=== PATIENT | female | born 1990 | race Caucasian/White ===

== ENCOUNTER 2016-12-05 15:26 | Emergency (ER) | payer SELFPAY ==
[~2016-12-05] VITALS: Ht 165.1 cm; Wt 86.2 kg
[~2016-12-05 15:26] MED LIST: PRENATAL VITAMI1 T10 PO
[2016-12-05 15:40] VITALS: BP 143/88
--- NOTE | 2016-12-05 16:37 | NUR ---
Pt ambulated to bed 8.
--- NOTE | 2016-12-05 16:39 | NUR ---
Patient being evaluated by physician assistance at bedside.
[2016-12-05] MEDS ORDERED: ONDANSETRON 4 MG ODT PO ONE (16:45)
--- NOTE | 2016-12-05 16:48 | NUR ---
L & D NURSE CHECKING HEART TONES AT BEDSIDE. ERMD AWARE
--- NOTE | 2016-12-05 17:00 | NUR ---
26/F presents to ED for evaluation of vomiting since today. Patient reports being 17 weeks , G-3 P-2. Patient has had no care at this time. Patient c/o vomiting x6 episodes today. Patient denies any vaginal bleeding, denies abdominal pain. Denies s/s of UTI. Patient is AOX4, ambulates with steady gait. VSS.
[2016-12-05] MEDS ORDERED: cefTRIAXone 250 MG in LIDOCAINE 1% ED 0.9 ML IM ONE (17:10)
[2016-12-05] MEDS ORDERED: AZITHROMYCIN 250 MG TAB PO ONE (17:10)
[2016-12-05 18:29] VITALS: BP 132/78
--- NOTE | 2016-12-05 18:29 | NUR ---
PHONE PROVIDED FOR PT FOR RIDE HOME---
== END 2016-12-05 18:28 | disposition home or self-care (01) ==
LOC: MED 15:26
DX: O21.0 Mild hyperemesis gravidarum (principal); O23.42 Unspecified infection of urinary tract in pregnancy, second trimester; O98.312 Other infections with a predominantly sexual mode of transmission complicating pregnancy, second trimester; O26.892 Other specified pregnancy related conditions, second trimester; R03.0 Elevated blood-pressure reading, without diagnosis of hypertension; Z3A.17 17 weeks gestation of pregnancy
CPT/HCPCS: 36415; 81001; 81025; 87086; 87491; 96372; 99284; J0696; J2001; S0119

== ENCOUNTER 2016-12-07 00:17 | Emergency (ER) | payer SELFPAY ==
[~2016-12-07] VITALS: Ht 165.1 cm; Wt 81.6 kg
[2016-12-07 00:27] VITALS: BP 119/73
--- NOTE | 2016-12-07 00:32 | NUR ---
BIBA TO ER BED ALS TO ER BED 8
[2016-12-07] MEDS ORDERED: NACL 0.9% 1,000 ML IV ONE (00:40)
[2016-12-07] MEDS ORDERED: ONDANSETRON 4 MG/2 ML VIAL IVP ONE (00:40)
--- NOTE | 2016-12-07 00:42 | NUR ---
PT BIBA C/O VOMITING BLOOD SINCE THIS MORNING. REPORTS BEING 17WKS . PT STATES NO MED HX. DENIES N/D; SKIN IS PINK/WARM/DRY; AAOX4 WITH EVEN AND STEADY GAIT; LUNGS CLEAR BL; HR EVEN AND REGULAR; PT DENIES ANY FEVER, CP, SOB, OR COUGH AT THIS TIME; PATIENT STATES PAIN OF 0/10 AT THIS TIME; VSS; PATIENT POSITIONED FOR COMFORT; HOB ELEVATED; BEDRAILS UP X2; BED DOWN. ER MD MADE AWARE OF PT STATUS.
--- NOTE | 2016-12-07 00:58 | NUR ---
Patient being evaluated by physician at bedside.
--- NOTE | 2016-12-07 02:50 | NUR ---
PT RESTING IN BED. NO S/S OF ACUTE DISTRESS AT THIS TIME.
[2016-12-07 04:25] VITALS: BP 116/68
== END 2016-12-07 04:25 | disposition home or self-care (01) ==
LOC: MED 00:17
DX: O21.0 Mild hyperemesis gravidarum (principal); O23.42 Unspecified infection of urinary tract in pregnancy, second trimester; O16.2 Unspecified maternal hypertension, second trimester; Z3A.17 17 weeks gestation of pregnancy
CPT/HCPCS: 36415; 76805; 80048; 81001; 84702; 85025; 86900; 86901; 87086; 96361; 96374; 99285; J2405; J7030

== ENCOUNTER 2022-02-21 00:53 | Observation (INO) | payer MEDICAID ==
[~2022-02-21] VITALS: Ht 152.4 cm; Wt 90.7 kg
[~2022-02-21 00:53] MED LIST changes: +CEPH-588 PO; +NAPR-54 PO; +PREN-385 PO; -PRENATAL VITAMI1 T10 PO
[2022-02-21] MEDS ORDERED: cefTRIAXone 1,000 MG in LIDOCAINE MPF 1% 2.1 ML IM SCH (01:40)
[2022-02-21] MEDS ORDERED: LIDOCAINE MPF 1% 10 MG/ML VIAL INJ SCH (01:40)
[2022-02-21 01:44] VITALS: BP 123/85
[2022-02-21] MEDS ORDERED: LIDOCAINE 1% 500 MG/50 ML VIAL ONE (01:50)
[2022-02-21] MEDS ORDERED: cefTRIAXone 1,000 MG VIAL ONE (01:50)
== END 2022-02-21 02:10 | disposition home or self-care (01) ==
LOC: MLD 00:53
PROVIDERS: ADMIT Obstetrics & Gynecology; ATTEND Obstetrics & Gynecology
DX: O26.893 Other specified pregnancy related conditions, third trimester (principal); R10.9 Unspecified abdominal pain; O99.333 Smoking (tobacco) complicating pregnancy, third trimester; F17.200 Nicotine dependence, unspecified, uncomplicated; Z3A.32 32 weeks gestation of pregnancy
CPT/HCPCS: 96372; G0378; J0696; J2001; 59025

== ENCOUNTER 2022-10-22 10:42 | Observation (INO) | payer MEDICAID ==
[~2022-10-22] VITALS: Ht 165.1 cm; Wt 90.7 kg
[2022-10-22] MEDS ORDERED: DEXT 5% / LACT RING 1,000 ML IV ONE (11:15)
[2022-10-22 11:21] VITALS: BP 172/85
[2022-10-22] MEDS ORDERED: DEXT 5% / LACT RING 1,000 ML IV SCH (11:30)
[2022-10-22] MEDS: ONDANSETRON 4 MG/2 ML VIAL IVP PRN ×2 (11:53→17:49)
[2022-10-22] MEDS ORDERED: METOCLOPRAMIDE 10 MG/2 ML INJ VIAL IVP SCH (12:50)
[2022-10-22] MEDS ORDERED: NALBUPHINE 10 MG/ML AMP IVP PRN (18:20)
[2022-10-22] MEDS ORDERED: LACTATED RINGERS 1,000 ML IV SCH (18:30)
[2022-10-22] MEDS ORDERED: NALBUPHINE 10 MG/ML AMP ONE (18:35)
== END 2022-10-22 20:08 | disposition home or self-care (01) ==
LOC: MLD 10:42 → UNDOADMOB 11:05
PROVIDERS: ADMIT Obstetrics & Gynecology; ATTEND Obstetrics & Gynecology
DX: O21.9 Vomiting of pregnancy, unspecified (principal); Z20.822 Contact with and (suspected) exposure to COVID-19; O26.892 Other specified pregnancy related conditions, second trimester; R10.9 Unspecified abdominal pain; Z3A.15 15 weeks gestation of pregnancy
CPT/HCPCS: 87426; 96361; 96374; 96376; G0378; J2300; J2405; J2765

== ENCOUNTER 2022-12-11 21:30 | Inpatient (IN) | payer MEDICAID ==
[~2022-12-11] VITALS: Ht 165.1 cm; Wt 90.7 kg
[~2022-12-11 21:30] MED LIST changes: -CEPH-588 PO; -NAPR-54 PO
[2022-12-11 22:07] VITALS: BP 191/93
[2022-12-11 22:44] LABS: BASOPHILS % (AUTO) 0.1 % (0.0-2.0); EOSINOPHILS % (AUTO) 0.1 % (0.0-4.0); HEMATOCRIT 27.2 % (36-48); HEMOGLOBIN 8.2 g/dL (12.0-16.0); LYMPHOCYTES # (AUTO) 1.3 K/uL (2.5-16.5); LYMPHOCYTES % (AUTO) 9.9 % (20.5-51.1); MEAN CORPUSCULAR HEMOGLOBIN 19 pg (27-31); MEAN CORPUSCULAR HGB CONC 30 g/dL (33-37); MEAN CORPUSCULAR VOLUME 61.2 fL (80-94); MONOCYTES # (AUTO) 0.7 K/uL (0.8-1.0); MONOCYTES % (AUTO) 4.9 % (1.7-9.3); NEUTROPHILS # (AUTO) 11.5 K/uL (1.8-7.7); PLATELET COUNT (AUTO) 372 K/uL (140-450); RED BLOOD CELL COUNT(AUTO) 4.44 MIL/uL (4.20-5.40); RED CELL DISTRIBUTION WIDTH 21.4 % (11.6-13.7); WHITE BLOOD COUNT (AUTO) 13.5 K/uL (4.8-10.8)
[2022-12-11] MEDS: MORPHINE SULFATE 4 MG/ML SYR IVP PRN (22:56)
[2022-12-11] MEDS: ONDANSETRON 4 MG/2 ML VIAL IVP PRN (22:57)
[2022-12-11 23:39] LABS: ALBUMIN 2.9 g/dL (3.4-5.0); ANION GAP 11.2 (8-16); CARBON DIOXIDE 26.7 mmol/L (21-32); CREATININE 0.6 mg/dL (0.6-1.3); POTASSIUM 3.9 mmol/L (3.5-5.1); TOTAL BILIRUBIN 0.3 mg/dL (0.0-1.0)
[2022-12-12] MEDS ORDERED: LABETALOL 20 MG/4 ML VIAL IVP ONE ×3 (00:24→16:21)
[2022-12-12] MEDS ORDERED: MAG SULF 20 GM/H2O PREMIX DRIP 500 ML IV PRN (00:25)
[2022-12-12] MEDS ORDERED: MAG SULF 2000 MG/WATER PREMIX 100 ML IV ONE (00:25)
[2022-12-12] MEDS: MORPHINE SULFATE 4 MG/ML SYR IVP PRN ×5 (01:56→20:01)
[2022-12-12] MEDS ORDERED: BETAMETH ACET/BETAMETH NA PH 30 MG/5 ML VIAL IM PRN (02:00)
[2022-12-12] MEDS ORDERED: BETAMETH ACET/BETAMETH NA PH 30 MG/5 ML VIAL IM ONE (02:06)
[2022-12-12 03:13] LABS: BARBITURATE, URINE NEGATIVE ng/ml (NEG <=200); BENZODIAZEPINE, URINE NEGATIVE ng/mL (NEG <=200); CANNABINOID, URINE NEGATIVE ng/mL (NEG <=50); COCAINE, URINE NEGATIVE ng/mL (NEG <=300); OPIATE, URINE POSITIVE ng/mL (NEG <=2000); PHENCYCLIDINE SCREEN,URINE NEGATIVE ng/mL (NEG <=25)
[2022-12-12] MEDS: ONDANSETRON 4 MG/2 ML VIAL IVP PRN (05:13)
[2022-12-12] MEDS ORDERED: PANTOPRAZOLE 40 MG INJ VIAL IVP SCH (09:00)
[2022-12-12] MEDS: LACTATED RINGERS 1,000 ML IV SCH ×2 (09:15→23:53)
--- NOTE | 2022-12-12 09:28 | NUR ---
PATIENT HAS BEEN SCREENED AND CATEGORIZED LOW NUTRITION RISK. PATIENT WILL BE SEEN WITHIN 7 DAYS OF ADMISSION. 12/19/22 REVIEWED BY CASPER ACKERMAN RD
[2022-12-12 10:41] LABS: PROTHROMBIN TIME 8.7 secs (10.8-13.4)
[2022-12-12 13:25] LABS: URINE TOTAL PROTEIN 32.6 mg/dL (0-12)
[2022-12-12] MEDS ORDERED: LABETALOL 20 MG/4 ML VIAL IVP SCH (16:24)
[2022-12-13] MEDS ORDERED: NIFEdipine 10 MG CAPLF PO SCH (00:30)
[2022-12-13] MEDS: MORPHINE SULFATE 4 MG/ML SYR IVP PRN (02:21)
[2022-12-13] MEDS: NIFEdipine 10 MG CAPLF PO SCH ×2 (06:33→12:09)
[2022-12-13] MEDS ORDERED: SODIUM FERRIC GLUCONATE 125 MG in NACL 0.9% 100 ML IV SCH (08:00)
== END 2022-12-13 13:31 | disposition home or self-care (01) | DRG 566 ==
LOC: MLD 21:30 → OBSVTOIN 12-12 00:22
PROVIDERS: ADMIT Obstetrics & Gynecology; ATTEND Obstetrics & Gynecology
DX: O21.0 Mild hyperemesis gravidarum (principal); O13.2 Gestational [pregnancy-induced] hypertension without significant proteinuria, second trimester; Z20.822 Contact with and (suspected) exposure to COVID-19; Z3A.26 26 weeks gestation of pregnancy
CPT/HCPCS: G0378 ×3; 36415; 80053; 80305; 82570; 83735; 84550; 85025; 85384; 85610; 85730; C9113; J0702; J2270; J2405; J2916; J3475; J3490

== ENCOUNTER 2023-01-02 18:35 | Observation (INO) | payer MEDICAID ==
[~2023-01-02] VITALS: Ht 162.6 cm; Wt 90.7 kg
[2023-01-02] MEDS ORDERED: MORPHINE SULFATE 4 MG/ML SYR IVP PRN (19:25)
[2023-01-02] MEDS ORDERED: DEXT 5% / LACT RING 1,000 ML IV SCH (19:25)
[2023-01-02] MEDS ORDERED: LABETALOL 200 MG TAB ONE (19:48)
[2023-01-02 19:55] LABS: BASOPHILS % (AUTO) 0.1 % (0.0-2.0); HEMATOCRIT 32.2 % (36-48); HEMOGLOBIN 9.9 g/dL (12.0-16.0); LYMPHOCYTES # (AUTO) 1.3 K/uL (2.5-16.5); LYMPHOCYTES % (AUTO) 9.6 % (20.5-51.1); MEAN CORPUSCULAR HEMOGLOBIN 19 pg (27-31); MEAN CORPUSCULAR HGB CONC 31 g/dL (33-37); MEAN CORPUSCULAR VOLUME 61.4 fL (80-94); MONOCYTES # (AUTO) 0.9 K/uL (0.8-1.0); MONOCYTES % (AUTO) 7.2 % (1.7-9.3); NEUTROPHILS # (AUTO) 10.9 K/uL (1.8-7.7); NEUTROPHILS % (AUTO) 83.1 % (42.2-75.2); PLATELET COUNT (AUTO) 435 K/uL (140-450); RED BLOOD CELL COUNT(AUTO) 5.24 MIL/uL (4.20-5.40); RED CELL DISTRIBUTION WIDTH 24.1 % (11.6-13.7); WHITE BLOOD COUNT (AUTO) 13.1 K/uL (4.8-10.8)
[2023-01-02 20:04] LABS: BILIRUBIN,URINE 1+ (NEGATIVE); BLOOD, URINE NEGATIVE (NEGATIVE); COLOR,URINE YELLOW (YELLOW); LEUKOCYTE ESTERASE ,URINE 1+ (NEGATIVE); NITRITE, URINE POSITIVE (NEGATIVE); UGLUCOSE NEGATIVE (NEGATIVE)
[2023-01-02 20:13] LABS: ALBUMIN 3.1 g/dL (3.4-5.0); ANION GAP 13.3 (8-16); CARBON DIOXIDE 28.2 mmol/L (21-32); CREATININE 0.8 mg/dL (0.6-1.3); POTASSIUM 3.5 mmol/L (3.5-5.1); TOTAL BILIRUBIN 0.4 mg/dL (0.0-1.0)
[2023-01-02 20:20] LABS: APPEARANCE,URINE HAZY (CLEAR)
[2023-01-02 20:35] LABS: BARBITURATE, URINE NEGATIVE ng/ml (NEG <=200); BENZODIAZEPINE, URINE NEGATIVE ng/mL (NEG <=200); CANNABINOID, URINE NEGATIVE ng/mL (NEG <=50); COCAINE, URINE NEGATIVE ng/mL (NEG <=300); OPIATE, URINE NEGATIVE ng/mL (NEG <=2000); PHENCYCLIDINE SCREEN,URINE NEGATIVE ng/mL (NEG <=25)
[2023-01-02 20:36] LABS: URINE TOTAL PROTEIN 96.1 mg/dL (0-12)
[2023-01-02 20:37] LABS: PROTHROMBIN TIME 9.4 secs (10.8-13.4)
[2023-01-02 20:40] LABS: FIBRINOGEN > 500 mg/dL (200-400)
[2023-01-02] MEDS ORDERED: LABETALOL 200 MG TAB PO SCH (21:00)
[2023-01-02 21:38] LABS: RBC,URINE NONE SEEN /HPF (0-5)
== END 2023-01-02 21:55 | disposition home or self-care (01) ==
LOC: MLD 18:35
PROVIDERS: ADMIT Obstetrics & Gynecology; ATTEND Obstetrics & Gynecology
DX: O21.2 Late vomiting of pregnancy (principal); Z20.822 Contact with and (suspected) exposure to COVID-19; O26.893 Other specified pregnancy related conditions, third trimester; R10.9 Unspecified abdominal pain; Z3A.30 30 weeks gestation of pregnancy
CPT/HCPCS: 36415; 59025; 80053; 80305; 81001; 82570; 84550; 85025; 85384; 85610; 85730; 87086; 96361; 96374; G0378; J2270

== ENCOUNTER 2023-01-03 20:32 | Observation (INO) | payer MEDICAID ==
[~2023-01-03] VITALS: Ht 162.6 cm; Wt 90.7 kg
[2023-01-03] MEDS ORDERED: MORPHINE SULFATE 5 MG/ML VIAL IVP SCH (21:00)
[2023-01-03] MEDS ORDERED: ONDANSETRON 4 MG/2 ML VIAL IVP PRN (21:00)
[2023-01-03] MEDS ORDERED: MORPHINE SULFATE 10 MG/ML VIAL ONE (21:13)
[2023-01-03] MEDS: LACTATED RINGERS 1,000 ML IV SCH (21:39)
[2023-01-03] MEDS ORDERED: TERBUTALINE 1 MG/ML VIAL SUBQ SCH (21:50)
[2023-01-03] MEDS ORDERED: hydrALAZINE 20 MG/ML VIAL IVP SCH (21:50)
[2023-01-04] MEDS: NALBUPHINE 10 MG/ML AMP IVP PRN ×2 (00:56→07:48)
[2023-01-04] MEDS: LACTATED RINGERS 1,000 ML IV SCH (01:01)
[2023-01-04 02:53] VITALS: BP 173/92
--- NOTE | 2023-01-04 09:14 | NUR ---
PATIENT HAS BEEN SCREENED AND CATEGORIZED LOW NUTRITION RISK. PATIENT WILL BE SEEN WITHIN 7 DAYS OF ADMISSION. 01/10/23 REVIEWED BY CASPER ACKERMAN RD
== END 2023-01-04 10:15 | disposition home or self-care (01) ==
LOC: MLD 20:32
PROVIDERS: ADMIT Obstetrics & Gynecology; ATTEND Obstetrics & Gynecology
DX: O21.2 Late vomiting of pregnancy (principal); O26.893 Other specified pregnancy related conditions, third trimester; R10.9 Unspecified abdominal pain; O99.891 Other specified diseases and conditions complicating pregnancy; M54.9 Dorsalgia, unspecified; Z3A.30 30 weeks gestation of pregnancy
CPT/HCPCS: 59025; 81000; 96361; 96374; 96375; 96376; G0378; J0360; J2270; J2300; J2405; J3105; J7120

== ENCOUNTER 2023-01-05 01:30 | Inpatient (IN) | payer MEDICAID ==
[~2023-01-05] VITALS: Ht 165.1 cm; Wt 90.7 kg
[2023-01-05] MEDS: LACTATED RINGERS 1,000 ML IV SCH ×2 (01:50→12:26)
[2023-01-05] MEDS ORDERED: LABETALOL 20 MG/4 ML VIAL IVP PRN (01:50)
[2023-01-05] MEDS ORDERED: LABETALOL 20 MG/4 ML VIAL IVP SCH (01:50)
[2023-01-05 02:13] VITALS: BP 196/95
[2023-01-05 02:21] LABS: BASOPHILS % (AUTO) 0.4 % (0.0-2.0); EOSINOPHILS # (AUTO) 0.1 K/uL (0-0.4); EOSINOPHILS % (AUTO) 0.6 % (0.0-4.0); HEMATOCRIT 30.1 % (36-48); HEMOGLOBIN 9.3 g/dL (12.0-16.0); LYMPHOCYTES # (AUTO) 1.6 K/uL (2.5-16.5); LYMPHOCYTES % (AUTO) 15.7 % (20.5-51.1); MEAN CORPUSCULAR HEMOGLOBIN 19 pg (27-31); MEAN CORPUSCULAR HGB CONC 31 g/dL (33-37); MEAN CORPUSCULAR VOLUME 61.3 fL (80-94); MONOCYTES % (AUTO) 10.3 % (1.7-9.3); NEUTROPHILS # (AUTO) 7.3 K/uL (1.8-7.7); PLATELET COUNT (AUTO) 335 K/uL (140-450); RED BLOOD CELL COUNT(AUTO) 4.91 MIL/uL (4.20-5.40); RED CELL DISTRIBUTION WIDTH 23.5 % (11.6-13.7)
[2023-01-05] MEDS ORDERED: LABETALOL 20 MG/4 ML VIAL IVP ONE (02:24)
[2023-01-05 02:41] LABS: ALBUMIN 2.8 g/dL (3.4-5.0); ANION GAP 13.3 (8-16); CARBON DIOXIDE 26.4 mmol/L (21-32); CREATININE 0.6 mg/dL (0.6-1.3); POTASSIUM 3.7 mmol/L (3.5-5.1); TOTAL BILIRUBIN 0.5 mg/dL (0.0-1.0); URINE TOTAL PROTEIN 46.8 mg/dL (0-12)
[2023-01-05] MEDS ORDERED: MAG SULF 2000 MG/WATER PREMIX 100 ML IV SCH (02:55)
[2023-01-05 03:04] LABS: PROTHROMBIN TIME 9.4 secs (10.8-13.4)
[2023-01-05 03:08] LABS: BARBITURATE, URINE NEGATIVE ng/ml (NEG <=200); BENZODIAZEPINE, URINE NEGATIVE ng/mL (NEG <=200); CANNABINOID, URINE NEGATIVE ng/mL (NEG <=50); COCAINE, URINE NEGATIVE ng/mL (NEG <=300); OPIATE, URINE POSITIVE ng/mL (NEG <=2000); PHENCYCLIDINE SCREEN,URINE NEGATIVE ng/mL (NEG <=25)
[2023-01-05] MEDS ORDERED: MORPHINE SULFATE 10 MG/ML VIAL ONE ×6 (03:10→21:59)
[2023-01-05] MEDS: MAG SULF 20 GM/H2O PREMIX DRIP 500 ML IV PRN ×2 (04:43→15:56)
[2023-01-05 06:29] VITALS: BP 154/78
[2023-01-05] MEDS: ONDANSETRON 4 MG/2 ML VIAL IVP PRN ×2 (08:07→22:12)
[2023-01-05] MEDS: MORPHINE SULFATE 5 MG/ML VIAL IVP PRN ×4 (09:37→22:09)
--- NOTE | 2023-01-05 09:42 | NUR ---
PATIENT HAS BEEN SCREENED AND CATEGORIZED LOW NUTRITION RISK. PATIENT WILL BE SEEN WITHIN 7 DAYS OF ADMISSION. 01/12/[address] REVIEWED BY CASPER ACKERMAN RD
[2023-01-05] MEDS ORDERED: BETAMETH ACET/BETAMETH NA PH 30 MG/5 ML VIAL IM ONE ×2 (14:40)
[2023-01-05] MEDS ORDERED: FERROUS SULFATE 325 MG TABEC PO SCH (15:20)
--- NOTE | 2023-01-05 15:56 | NUR ---
DC PLANNING ASSESSMENT COMPLETE PLEASE REFER TO ASSESSMENT FOR DETAILS PT STRUGGLED TO PARTICIPATE AND COMPLETE ASSESSMENT. PT WAS HOSTILE AND REFUSED TO RESPOND TO SW PROMPTS. SS ORDER RECEIVED FOR SUSPECTED HOMELESSNESS AND FOR POS TOX. ORDER RECEIVED PT TESTED POSITIVE FOR OPIATES. PT REPORTS RESIDING IN A SINGLE STORY HOME WIHT HER " MOTHER IN LAW" BF MOTHER. PT REPORTS SHE IS NOT HOMELESS AND REPORTS RESIDING WITH HER MOTHER IN LAW. PT DENIES CURRENT SUBSTANCE USE DESPITE TESTING POSITIVE AT ADMISSION FOR OPIATE USE. PT REPORTS SUBSTANCE OF CHOICE IN THE PAST WAS METH HOWEVER REPORTS SHE DOES NOT CURRENTLY USE. PT REPORTS NO CARE SHE HAS NO TRANSPORTATION TO AND FROM [place]. [facility] PROVIDED PT WITH HOMELESS RESOURCES, EMERGENCY ASSISTANCE RESOURCES, HOMELESS RESOURCES FOR WOMEN, AND SUBSTANCE USE RESOURCES. OUTREACHED TO [facility] [phone] FOR CONSULT. SPOKE WITH [facility] AND DISCUSSED CONCERNS. [facility] REPORTS INFORMATION AT THIS TIME DOES NOT WARRANT A REFERRAL TO BE GENERATED PATIENT IS CURRENTLY AND BABY HAS NOT BEEN BORN. 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 Addendum: 01/05/23 at 1559 by Ledy Singh Amended: Links added.
[2023-01-06] MEDS: LACTATED RINGERS 1,000 ML IV SCH (01:59)
[2023-01-06] MEDS: MAG SULF 20 GM/H2O PREMIX DRIP 500 ML IV PRN (02:01)
[2023-01-06] MEDS ORDERED: MORPHINE SULFATE 10 MG/ML VIAL ONE (02:07)
[2023-01-06] MEDS: MORPHINE SULFATE 5 MG/ML VIAL IVP PRN (02:13)
[2023-01-06] MEDS ORDERED: NIFEdipine 10 MG CAPLF PO SCH (12:00)
[2023-01-06] MEDS ORDERED: cefTRIAXone 1,000 MG in LIDOCAINE MPF 1% 2.1 ML IM SCH (16:00)
[2023-01-06] MEDS ORDERED: BETAMETH ACET/BETAMETH NA PH 30 MG/5 ML VIAL IM ONE ×2 (16:35)
== END 2023-01-06 17:51 | disposition home or self-care (01) | DRG 566 ==
LOC: MLD 01:30 → OBSVTOIN 01:58 → MLD 02:11 → MFCC 03:20
PROVIDERS: ADMIT Obstetrics & Gynecology; ATTEND Obstetrics & Gynecology
DX: O99.323 Drug use complicating pregnancy, third trimester (principal); O60.03 Preterm labor without delivery, third trimester; O13.3 Gestational [pregnancy-induced] hypertension without significant proteinuria, third trimester; O99.013 Anemia complicating pregnancy, third trimester; D50.9 Iron deficiency anemia, unspecified; F15.90 Other stimulant use, unspecified, uncomplicated; Z20.822 Contact with and (suspected) exposure to COVID-19; Z3A.29 29 weeks gestation of pregnancy
CPT/HCPCS: 36415; 76801; 80053; 80305; 82570; 83735; 84550; 85025; 85384; 85610; 85730; 86850; 86886; 86900; 86901; J0696; J0702; J2001; J2270; J2405; J3475; J3490; Q0092

== ENCOUNTER 2023-07-17 13:46 | Emergency (ER) | payer MEDICAID ==
[~2023-07-17] VITALS: Ht 157.5 cm; Wt 65.8 kg
[2023-07-17 13:47] VITALS: BP 170/99; PULSE 84; RESP 17; TEMP 97.9; O2SAT 98
== END 2023-07-17 15:17 | disposition left against medical advice (07) ==
LOC: MED 13:46
DX: R10.9 Unspecified abdominal pain (principal); Z53.21 Procedure and treatment not carried out due to patient leaving prior to being seen by health care provider
CPT/HCPCS: 99281

== ENCOUNTER → 2023-12-27 09:41 | Emergency (ER) | payer MEDICAID, OTHER | END | disposition home or self-care (01) | LOC: MED 09:41 | DX: O26.899 Other specified pregnancy related conditions, unspecified trimester (principal); R10.9 Unspecified abdominal pain; Z3A.00 Weeks of gestation of pregnancy not specified ==

== ENCOUNTER 2023-12-27 09:50 | Observation (INO) | payer MEDICAID, OTHER ==
[~2023-12-27] VITALS: Ht 165.1 cm; Wt 90.7 kg
[2023-12-27 11:28] LABS: BASOPHILS % (AUTO) 0.2 % (0.0-2.0); EOSINOPHILS % (AUTO) 0.4 % (0.0-4.0); HEMATOCRIT 36.7 % (36-48); HEMOGLOBIN 12.4 g/dL (12.0-16.0); LYMPHOCYTES # (AUTO) 2.4 K/uL (2.5-16.5); LYMPHOCYTES % (AUTO) 23.3 % (20.5-51.1); MEAN CORPUSCULAR HEMOGLOBIN 27 pg (27-31); MEAN CORPUSCULAR HGB CONC 34 g/dL (33-37); MEAN CORPUSCULAR VOLUME 79.8 fL (80-94); MONOCYTES # (AUTO) 0.9 K/uL (0.8-1.0); MONOCYTES % (AUTO) 9.1 % (1.7-9.3); NEUTROPHILS # (AUTO) 6.8 K/uL (1.8-7.7); PLATELET COUNT (AUTO) 286 K/uL (140-450); RED CELL DISTRIBUTION WIDTH 34.3 % (11.6-13.7); WHITE BLOOD COUNT (AUTO) 10.2 K/uL (4.8-10.8)
[2023-12-27 11:34] LABS: APPEARANCE,URINE CLEAR (CLEAR); BILIRUBIN,URINE NEGATIVE (NEGATIVE); BLOOD, URINE NEGATIVE (NEGATIVE); COLOR,URINE YELLOW (YELLOW); LEUKOCYTE ESTERASE ,URINE 1+ (NEGATIVE); NITRITE, URINE NEGATIVE (NEGATIVE); PROTEIN,URINE NEGATIVE (NEGATIVE); UGLUCOSE NEGATIVE (NEGATIVE); UROBILINOGEN,URINE 0.2 EU/dL (0.2 - 1)
[2023-12-27 11:43] LABS: ALBUMIN 2.2 g/dL (3.4-5.0); ANION GAP 11.6 (8-16); CALCIUM 8.8 mg/dL (8.5-10.1); CARBON DIOXIDE 24.6 mmol/L (21-32); CREATININE 0.8 mg/dL (0.6-1.3); POTASSIUM 4.2 mmol/L (3.5-5.1); TOTAL BILIRUBIN 0.1 mg/dL (0.0-1.0)
[2023-12-27 11:48] LABS: AMPHETAMINE, URINE POSITIVE ng/ml (NEG <=1000); BARBITURATE, URINE NEGATIVE ng/ml (NEG <=200); BENZODIAZEPINE, URINE NEGATIVE ng/mL (NEG <=200); CANNABINOID, URINE NEGATIVE ng/mL (NEG <=50); COCAINE, URINE NEGATIVE ng/mL (NEG <=300); OPIATE, URINE NEGATIVE ng/mL (NEG <=2000); PHENCYCLIDINE SCREEN,URINE NEGATIVE ng/mL (NEG <=25)
[2023-12-27 11:51] LABS: BACTERIA,URINE 10-30 (MOD) /HPF (None Seen); SQUAMOUS EPITHELIAL CELL,UR 4-10 (MOD) /LPF (0-3 (FEW))
[2023-12-27 11:58] LABS: INR 0.83 (0.8-1.2); PARTIAL THROMBOPLASTIN TIME 24.9 secs (22-35.6); PROTHROMBIN TIME 8.8 secs (10.8-13.4); URINE TOTAL PROTEIN 38.5 mg/dL (0-12)
[2023-12-27 11:59] LABS: URINE TPRO CREAT RATIO 0.2 (0-0.20)
[2023-12-27 12:15] LABS: ANISOCYTOSIS 3+
[2023-12-27] MEDS ORDERED: LABETALOL 200 MG TAB PO SCH (12:35)
[2023-12-27] MEDS ORDERED: LACTATED RINGERS 1,000 ML IV SCH (12:35)
[2023-12-27] MEDS ORDERED: hydrALAZINE 20 MG/ML VIAL IVP SCH (12:35)
[2023-12-27] MEDS: LABETALOL 200 MG TAB ONE (12:56)
[2023-12-27] MEDS: hydrALAZINE 20 MG/ML VIAL ONE (12:57)
[2023-12-27 13:57] VITALS: BP 158/82; PULSE 101
== END 2023-12-27 14:55 | disposition home or self-care (01) ==
LOC: MLD 09:50
PROVIDERS: ADMIT Obstetrics & Gynecology; ATTEND Obstetrics & Gynecology
DX: O13.3 Gestational [pregnancy-induced] hypertension without significant proteinuria, third trimester (principal); O26.893 Other specified pregnancy related conditions, third trimester; R10.9 Unspecified abdominal pain; Z3A.33 33 weeks gestation of pregnancy; Z79.899 Other long term (current) drug therapy
CPT/HCPCS: 36415; 80053; 80305; 81001; 82570; 84550; 85025; 85384; 85610; 85730; G0378; G0379; J0360